=== PATIENT | male | born 1935 | race Caucasian/White ===

== ENCOUNTER → 2017-09-03 | Outpatient (CLI) | payer MEDICARE, OTHER ==
[~2017-09-03] MED LIST: BUMEX0.5 MG PO; HUMULIN 70-30 V10 ML SQ; HYDROCODONE-AP1 EACH PO; KEFLEX500 MG PO; LEVOTHYROXINE PO; QUINAGLUTE324 MG GT; Z.0.ALDACTONE50 MG PO; Z.0.ASPIRIN325 MG PO; Z.0.COUMADIN5 MG PO; Z.0.CRESTOR5 MG PO; Z.0.DIOVAN80 MG PO; Z.0.LYRICA75 MG PO; [UNRECOGNIZED DRUG - OTHER] SQ
--- NOTE | 2017-09-03 14:03 | Diagnostic Imaging Report ---
PROCEDURE: Frontal and lateral views of the chest. COMPARISON: None. INDICATIONS: SINUS CONGESTION SINCE APR 2017 FINDINGS: Lines/tubes: None. Lungs: The lungs are well inflated and clear. There is no evidence of pneumonia or pulmonary edema. Pleura: There is no pleural effusion or pneumothorax. Heart and mediastinum: The cardiac silhouette is mildly enlarged. Bones: No acute bony abnormality. IMPRESSION: 1. No acute cardiopulmonary disease. Jean-Claude Espinal M.D. Dictated by: Jean-Claude Espinal M.D. on 09/03/2017 at 14:05 Electronically approved by: Jean-Claude Espinal M.D. on 09/03/2017 at 14:05
--- NOTE | 2017-09-03 14:10 | Diagnostic Imaging Report ---
PROCEDURE:X-RAY PARANASAL SINUSES, LIMITED COMPARISON:None. INDICATIONS:RIGHT SINUS CONGESTION SINCE APR 2017 FINDINGS: There is near diffuse opacification of the right maxillary sinus. There is a small air-fluid level in the left maxillary sinus. The remainder paranasal sinuses are clear. No expansile or destructive osseous lesions are seen. No evidence of fracture. CONCLUSION: Diffuse increased opacification of the right maxillary sinus and a small air-fluid level in the left maxillary sinus suggesting sinusitis right greater than left. CT paranasal sinuses/maxillofacial imaging the helpful for characterization Jean-Claude Espinal M.D. Dictated by: Jean-Claude Espinal M.D. on 09/03/2017 at 14:12 Electronically approved by: Jean-Claude Espinal M.D. on 09/03/2017 at 14:12
== END ==
LOC: RAD 13:05
PROVIDERS: ATTEND Family Medicine
DX: J01.10 Acute frontal sinusitis, unspecified (principal); I10 Essential (primary) hypertension
CPT/HCPCS: 70210; 71046

== ENCOUNTER 2018-04-01 09:47 | Outpatient (RCR) | payer MEDICARE, OTHER ==
[2018-04-01] MEDS ORDERED: MUPIROCIN 2% OINT 22 GM TUBE ONE (18:22)
[2018-04-01] MEDS ORDERED: MINERAL OIL/PETROLAT/GLYCERI 6OZ BTL ONE (18:22)
== END 2018-04-05 ==
LOC: WCC 09:47
PROVIDERS: ATTEND Plastic Surgery
DX: E11.65 Type 2 diabetes mellitus with hyperglycemia (principal); I87.331 Chronic venous hypertension (idiopathic) with ulcer and inflammation of right lower extremity; I87.339 Chronic venous hypertension (idiopathic) with ulcer and inflammation of unspecified lower extremity; L97.819 Non-pressure chronic ulcer of other part of right lower leg with unspecified severity; L97.809 Non-pressure chronic ulcer of other part of unspecified lower leg with unspecified severity; R60.0 Localized edema; I89.0 Lymphedema, not elsewhere classified; M10.9 Gout, unspecified; I10 Essential (primary) hypertension; E03.9 Hypothyroidism, unspecified; E66.01 Morbid (severe) obesity due to excess calories; G47.39 Other sleep apnea; H40.9 Unspecified glaucoma; I25.119 Atherosclerotic heart disease of native coronary artery with unspecified angina pectoris

== ENCOUNTER → 2018-05-15 | Outpatient (CLI) | payer MEDICARE, OTHER | LOC: RAD 08:13 | PROVIDERS: ATTEND Plastic Surgery | DX: I87.331 Chronic venous hypertension (idiopathic) with ulcer and inflammation of right lower extremity (principal); L97.819 Non-pressure chronic ulcer of other part of right lower leg with unspecified severity | CPT/HCPCS: 93970 ==

== ENCOUNTER 2018-05-20 09:36 | Outpatient (RCR) | payer MEDICARE, OTHER ==
[~2018-05-20 09:36] MED LIST changes: +MINERAL OIL/PETROLAT/GLYCERI 6OZ BTL ONE
[2018-05-20] MEDS ORDERED: MINERAL OIL/PETROLAT/GLYCERI 6OZ BTL ONE (18:57)
== END 2018-06-06 ==
LOC: WCC 09:36
PROVIDERS: ATTEND Plastic Surgery
DX: E11.65 Type 2 diabetes mellitus with hyperglycemia (principal); I87.331 Chronic venous hypertension (idiopathic) with ulcer and inflammation of right lower extremity; I87.339 Chronic venous hypertension (idiopathic) with ulcer and inflammation of unspecified lower extremity; L97.819 Non-pressure chronic ulcer of other part of right lower leg with unspecified severity; L97.809 Non-pressure chronic ulcer of other part of unspecified lower leg with unspecified severity; I87.2 Venous insufficiency (chronic) (peripheral); Q82.0 Hereditary lymphedema; R60.0 Localized edema; M10.9 Gout, unspecified; I10 Essential (primary) hypertension; L81.9 Disorder of pigmentation, unspecified; E03.9 Hypothyroidism, unspecified; I25.119 Atherosclerotic heart disease of native coronary artery with unspecified angina pectoris; E66.01 Morbid (severe) obesity due to excess calories; G47.39 Other sleep apnea; H40.9 Unspecified glaucoma

== ENCOUNTER → 2019-07-17 | Outpatient (CLI) | payer MEDICARE, OTHER ==
[~2019-07-17] MED LIST changes: -MINERAL OIL/PETROLAT/GLYCERI 6OZ BTL ONE
--- NOTE | 2019-07-17 11:21 | Diagnostic Imaging Report ---
EXAM: Renal Ultrasound INDICATION: ^[id number] ^[id number] ^CHRONIC KIDNEY DISEASE STAGE III COMPARISON: None TECHNIQUE: Transverse and longitudinal images of the kidneys and bladder were obtained. FINDINGS: Right Kidney: Length: 14.4 cm Appearance: Normal echogenicity. Collecting system: No hydronephrosis Stones: None Cyst/Mass: None Left Kidney: Length: 10.6 cm Appearance: Normal echogenicity. Collecting system: No hydronephrosis Stones: None Cyst/Mass: 3.8 x 4.0 x 4.3 cm lower pole anechoic simple cyst. Bladder: Decompressed IMPRESSION: No hydronephrosis or renal calculi. Left lower pole 4.3 cm subtle cyst. Decompressed bladder limits evaluation. Signed by: Can Hay MD on 07/17/2019 11:18 AM
== END ==
LOC: US 09:52
PROVIDERS: ATTEND Internal Medicine Nephrology
DX: N18.3 Chronic kidney disease, stage 3 (moderate) (principal); I12.9 Hypertensive chronic kidney disease with stage 1 through stage 4 chronic kidney disease, or unspecified chronic kidney disease
CPT/HCPCS: 76770

== ENCOUNTER 2020-05-24 12:24 | Inpatient (IN) | payer MEDICARE, OTHER ==
[~2020-05-24] VITALS: Ht 177.8 cm; Wt 167.8 kg
[2020-05-24 13:21] LABS: BASOPHILS % 0.3 % (0.0-1.0); EOSINOPHILS % 0.1 % (0.0-6.0); HEMATOCRIT 32.5 % (38.2-49.6); LYMPHOCYTES # (AUTO) 4.9 (1.0-3.2); LYMPHOCYTES % 34.6 % (18.0-39.1); MEAN CORPUSCULAR HEMOGLOBIN 28.8 pg (28-32); MEAN CORPUSCULAR HGB CONC 30.8 g/dL (31-35); MEAN CORPUSCULAR VOLUME 93.7 fL (81-99); MONOCYTES # (AUTO) 0.9 (0.2-0.8); MONOCYTES % 6.1 % (4.4-11.3); NEUTROPHILS # (AUTO) 8.4 (2.1-6.9); NEUTROPHILS % 58.5 % (38.7-80.0); PLATELET COUNT 284 x10e3/uL (140-360); RED BLOOD COUNT 3.47 x10e6/uL (4.3-5.7)
[2020-05-24 13:31] LABS: INR 3.68; PROTHROMBIN TIME 39.8 seconds (11.9-14.5)
[2020-05-24 13:32] LABS: PARTIAL THROMBOPLASTIN TIME 31.4 seconds (23.8-35.5)
[2020-05-24 13:39] LABS: ALBUMIN/GLOBULIN RATIO 0.9 (0.8-2.0); ANION GAP 11.9 mmol/L (8-16); CALCIUM 8.4 mg/dL (8.4-10.2); CREATININE, SERUM 2.27 mg/dL (0.72-1.25); MAGNESIUM 1.9 MG/DL (1.3-2.1)
[2020-05-24 13:45] LABS: CREATINE KINASE MB 2.6 ng/mL (0-5.0)
[2020-05-24 13:49] LABS: POTASSIUM 6.9 mmol/L (3.5-5.1)
[2020-05-24 13:54] LABS: ERYTHROCYTE SEDIMENTATION RATE 37 mm/hr (0-13)
[2020-05-24 14:52] LABS: CLARITY,URINE CLEAR (CLEAR); COLOR,URINE YELLOW (YELLOW); LEUKOCYTE ESTERASE ,URINE NEGATIVE (NEGATIVE)
[2020-05-24 14:53] LABS: NITRITE,URINE NEGATIVE (NEGATIVE); PROTEIN,URINE DIPSTICK NEGATIVE (NEGATIVE)
[2020-05-24 14:54] LABS: KETONES,URINE NEGATIVE (NEGATIVE); URINE UROBILINOGEN 0.2 mg/dL (0.2 - 1)
[2020-05-24 15:03] LABS: EPITHELIAL CELLS,URINE RARE /LPF; MUCUS,URINE FEW (RARE); RBC,URINE 0-5 /HPF (0-5); WBC,URINE (MAN) 0-5 /HPF (0-5)
[2020-05-24] MEDS ORDERED: DEXTROSE 50% SYRINGE 50 ML IV STA (15:40)
[2020-05-24] MEDS ORDERED: SODIUM BICARBONATE 8.4% INJ 50 ML SYR IV STA (15:40)
[2020-05-24] MEDS ORDERED: SODIUM CHLORIDE 0.9% 500ML 500 ML IV ONE ×2 (15:45→17:15)
[2020-05-24] MEDS ORDERED: INSULIN REGULAR, HUMAN 100 UNIT/1 ML 3ML VIAL IV ONE (15:45)
[2020-05-24] MEDS ORDERED: CALCIUM GLUCONATE 10% INJ 4.65 MEQ in SODIUM CHLORIDE 0.9% 50ML 50 ML IV ONE (16:15)
[2020-05-24] MEDS ORDERED: ATORVASTATIN CA20 MG PO (16:23)
[2020-05-24] MEDS ORDERED: WARFARIN SODIU7.5 MG PO (16:23)
[2020-05-24] MEDS ORDERED: LEVOTHYROXINE50 MCG PO (16:23)
[2020-05-24] MEDS ORDERED: LOPERAMIDE2 MG PO (16:23)
[2020-05-24] MEDS ORDERED: QUINIDINE SULF300 MG PO (16:23)
[2020-05-24] MEDS ORDERED: ACETAMINOPHEN325 M1 PO (16:23)
[2020-05-24] MEDS ORDERED: ALLOPURINOL300 MG PO (16:23)
[2020-05-24] MEDS ORDERED: XALATAN2.5 ML OU (16:24)
[2020-05-24] MEDS ORDERED: ONDANSETRON HCL INJ 2MG/ML 2ML 2 MG/ML VIAL IV PRN (17:15)
[2020-05-24] MEDS ORDERED: SOD POLYSTYRENE SULFONATE SUSP 15 GM/60 ML BTL PO STA (17:28)
[2020-05-24] MEDS ORDERED: PHYTONADIONE 10 MG/ML AMP SQ STA (17:28)
[2020-05-24] MEDS ORDERED: LACTULOSE SYRUP 20 GM/30 ML UDC PO STA (17:28)
[2020-05-24] MEDS: DEXTROSE 50% SYRINGE 50 ML IV PRN ×2 (17:38→18:32)
[2020-05-24 17:42] LABS: THYROID STIMULATING HORMONE 1.935 uIU/mL (0.350-4.940)
[2020-05-24] MEDS: SODIUM BICARBONATE 8.4% SYRING 150 ML in DEXTROSE 5% 1,000 ML IV SCH (18:17)
[2020-05-24] MEDS ORDERED: SODIUM BICARBONATE 8.4% SYRING 50 ML ONE (18:28)
[2020-05-24] MEDS: INSULIN LISPRO 100 UNIT/1 ML 3ML VIAL SQ SCH (20:43)
[2020-05-24] MEDS: SODIUM CHLORIDE 0.9% 1000ML 1,000 ML IV SCH (21:58)
[2020-05-24 22:13] LABS: CREATINE KINASE MB 2.5 ng/mL (0-5.0)
[2020-05-25] MEDS: SODIUM CHLORIDE 0.9% 1000ML 1,000 ML IV SCH ×2 (01:58→02:05)
[2020-05-25] MEDS: SODIUM BICARBONATE 8.4% SYRING 150 ML in DEXTROSE 5% 1,000 ML IV SCH ×2 (02:05→19:10)
[2020-05-25] MEDS ORDERED: SODIUM BICARBONATE 8.4% SYRING 100 ML ONE (02:12)
[2020-05-25 05:34] LABS: BASOPHILS # (AUTO) 0.1 (0.0-0.1); BASOPHILS % 0.4 % (0.0-1.0); EOSINOPHILS # (AUTO) 0.1 (0.0-0.4); EOSINOPHILS % 0.6 % (0.0-6.0); HEMATOCRIT 31.2 % (38.2-49.6); HEMOGLOBIN 9.6 g/dL (14.0-18.0); LYMPHOCYTES # (AUTO) 5.1 (1.0-3.2); MEAN CORPUSCULAR HEMOGLOBIN 28.9 pg (28-32); MEAN CORPUSCULAR HGB CONC 30.8 g/dL (31-35); NEUTROPHILS # (AUTO) 9.6 (2.1-6.9); NEUTROPHILS % 60.5 % (38.7-80.0); PLATELET COUNT 255 x10e3/uL (140-360); RED BLOOD COUNT 3.32 x10e6/uL (4.3-5.7); RED CELL DISTRIBUTION WIDTH 19.3 % (11.7-14.4)
[2020-05-25 05:44] LABS: INR 3.82
[2020-05-25 05:54] LABS: CREATINE KINASE MB 3.1 ng/mL (0-5.0)
[2020-05-25 06:16] LABS: ALBUMIN 2.8 g/dL (3.5-5.0); ALBUMIN/GLOBULIN RATIO 0.9 (0.8-2.0); ANION GAP 10.5 mmol/L (8-16); CALCIUM 7.8 mg/dL (8.4-10.2); CREATININE, SERUM 2.03 mg/dL (0.72-1.25); POTASSIUM 5.5 mmol/L (3.5-5.1)
[2020-05-25] MEDS ORDERED: PHYTONADIONE 1 MG/0.5 ML AMP IM ONE (07:00)
[2020-05-25] MEDS ORDERED: SOD POLYSTYRENE SULFONATE SUSP 15 GM/60 ML BTL PO ONE (07:15)
[2020-05-25] MEDS ORDERED: LACTULOSE SYRUP 20 GM/30 ML UDC PO ONE (07:15)
[2020-05-25] MEDS: LEVOFLOXACIN 250MG/D5W 50ML 50 ML IV SCH (08:02)
[2020-05-25] MEDS ORDERED: PHYTONADIONE 10 MG/ML AMP IM ONE (08:15)
[2020-05-25] MEDS: INSULIN LISPRO 100 UNIT/1 ML 3ML VIAL SQ SCH ×4 (11:30→21:00)
[2020-05-25 14:25] LABS: CREATINE KINASE MB 2.6 ng/mL (0-5.0)
[2020-05-25 15:55] LABS: ALBUMIN 2.8 g/dL (3.5-5.0); ALBUMIN/GLOBULIN RATIO 0.9 (0.8-2.0); ANION GAP 14.3 mmol/L (8-16); CALCIUM 7.8 mg/dL (8.4-10.2); CREATININE, SERUM 2.01 mg/dL (0.72-1.25)
[2020-05-25 15:57] LABS: POTASSIUM 5.3 mmol/L (3.5-5.1)
[2020-05-25] MEDS ORDERED: LACTULOSE SYRUP 20 GM/30 ML UDC PO NR (16:15)
[2020-05-25] MEDS ORDERED: SOD POLYSTYRENE SULFONATE SUSP 15 GM/60 ML BTL PO NR (16:15)
[2020-05-25] MEDS ORDERED: ACETAMINOPHEN 325 MG TAB PO PRN (18:15)
[2020-05-25 21:29] VITALS: BP 117/61
[2020-05-25] MEDS: HUMULIN 70/30 VIAL SQ SCH (21:50)
[2020-05-25] MEDS: ATORVASTATIN 40 MG TAB PO SCH (21:50)
[2020-05-25 22:00] VITALS: BP 117/61
[2020-05-26] VITALS (9 sets, daily range): BP systolic 112–147; BP diastolic 52–99
[2020-05-26] MEDS: SODIUM BICARBONATE 8.4% SYRING 150 ML in DEXTROSE 5% 1,000 ML IV SCH ×2 (05:56→20:34)
[2020-05-26] MEDS: LEVOTHYROXINE SODIUM 50 MCG TAB PO SCH (06:00)
[2020-05-26 06:12] LABS: BASOPHILS # (AUTO) 0.1 (0.0-0.1); BASOPHILS % 0.4 % (0.0-1.0); EOSINOPHILS # (AUTO) 0.1 (0.0-0.4); HEMOGLOBIN 9.9 g/dL (14.0-18.0); LYMPHOCYTES # (AUTO) 4.5 (1.0-3.2); LYMPHOCYTES % 32.8 % (18.0-39.1); MEAN CORPUSCULAR HEMOGLOBIN 29.1 pg (28-32); MEAN CORPUSCULAR HGB CONC 30.9 g/dL (31-35); MEAN CORPUSCULAR VOLUME 94.1 fL (81-99); MONOCYTES # (AUTO) 1.2 (0.2-0.8); MONOCYTES % 8.5 % (4.4-11.3); NEUTROPHILS # (AUTO) 7.7 (2.1-6.9); NEUTROPHILS % 56.8 % (38.7-80.0); PLATELET COUNT 246 x10e3/uL (140-360); RED CELL DISTRIBUTION WIDTH 19.5 % (11.7-14.4)
[2020-05-26 06:25] LABS: INR 1.91; PROTHROMBIN TIME 23.4 seconds (11.9-14.5)
[2020-05-26 06:39] LABS: ALBUMIN 2.7 g/dL (3.5-5.0); ALBUMIN/GLOBULIN RATIO 0.9 (0.8-2.0); ANION GAP 13.3 mmol/L (8-16); CREATININE, SERUM 1.8 mg/dL (0.72-1.25); MAGNESIUM 1.7 MG/DL (1.3-2.1); POTASSIUM 5.3 mmol/L (3.5-5.1)
[2020-05-26] MEDS: HUMULIN 70/30 VIAL SQ SCH ×4 (07:30→20:32)
[2020-05-26] MEDS: INSULIN LISPRO 100 UNIT/1 ML 3ML VIAL SQ SCH ×4 (07:30→20:32)
[2020-05-26] MEDS: LEVOFLOXACIN 250MG/D5W 50ML 50 ML IV SCH (08:40)
[2020-05-26] MEDS ORDERED: ALLOPURINOL 300 MG TAB PO SCH (09:00)
[2020-05-26] MEDS ORDERED: VALSARTAN 80 MG TAB PO SCH (09:00)
[2020-05-26] MEDS ORDERED: LACTULOSE SYRUP 20 GM/30 ML UDC PO ONE (14:00)
[2020-05-26] MEDS ORDERED: SOD POLYSTYRENE SULFONATE SUSP 15 GM/60 ML BTL PO ONE (14:00)
[2020-05-26] MEDS: ATORVASTATIN 40 MG TAB PO SCH (20:37)
[2020-05-26] MEDS ORDERED: SODIUM BICARBONATE 650 MG TAB PO SCH (21:00)
[2020-05-27] MEDS: SODIUM BICARBONATE 8.4% SYRING 150 ML in DEXTROSE 5% 1,000 ML IV SCH (04:45)
[2020-05-27 04:55] VITALS: BP 131/88
[2020-05-27] MEDS: LEVOTHYROXINE SODIUM 50 MCG TAB PO SCH (05:59)
[2020-05-27 06:08] LABS: BASOPHILS % 0.3 % (0.0-1.0); EOSINOPHILS # (AUTO) 0.1 (0.0-0.4); EOSINOPHILS % 0.9 % (0.0-6.0); HEMATOCRIT 28.6 % (38.2-49.6); HEMOGLOBIN 8.8 g/dL (14.0-18.0); LYMPHOCYTES # (AUTO) 4.5 (1.0-3.2); LYMPHOCYTES % 31.8 % (18.0-39.1); MEAN CORPUSCULAR HGB CONC 30.8 g/dL (31-35); MEAN CORPUSCULAR VOLUME 94.4 fL (81-99); MONOCYTES # (AUTO) 1.1 (0.2-0.8); MONOCYTES % 7.7 % (4.4-11.3); NEUTROPHILS # (AUTO) 8.3 (2.1-6.9); PLATELET COUNT 197 x10e3/uL (140-360); RED BLOOD COUNT 3.03 x10e6/uL (4.3-5.7); RED CELL DISTRIBUTION WIDTH 19.4 % (11.7-14.4)
[2020-05-27 06:45] LABS: ALBUMIN 2.4 g/dL (3.5-5.0); ALBUMIN/GLOBULIN RATIO 0.9 (0.8-2.0); ANION GAP 13.1 mmol/L (8-16); CALCIUM 7.7 mg/dL (8.4-10.2); CREATININE, SERUM 1.55 mg/dL (0.72-1.25); POTASSIUM 4.1 mmol/L (3.5-5.1)
[2020-05-27 07:42] VITALS: BP 131/88
[2020-05-27 08:06] VITALS: BP 101/70
== END 2020-05-27 10:09 | disposition home or self-care (01) | DRG 683 ==
LOC: ER 12:31 → ERHOLD 17:26 → MED/SURG3 05-25 16:48
PROVIDERS: ADMIT Family Medicine; ATTEND Family Medicine
DX: N17.9 Acute kidney failure, unspecified (principal); N39.0 Urinary tract infection, site not specified; L03.116 Cellulitis of left lower limb; L03.115 Cellulitis of right lower limb; Z68.43 Body mass index [BMI] 50.0-59.9, adult; E87.2 Acidosis; E87.5 Hyperkalemia; I25.10 Atherosclerotic heart disease of native coronary artery without angina pectoris; Z95.5 Presence of coronary angioplasty implant and graft; M21.379 Foot drop, unspecified foot; M54.16 Radiculopathy, lumbar region; E11.22 Type 2 diabetes mellitus with diabetic chronic kidney disease; N18.30 Chronic kidney disease, stage 3 unspecified; I12.9 Hypertensive chronic kidney disease with stage 1 through stage 4 chronic kidney disease, or unspecified chronic kidney disease; E66.01 Morbid (severe) obesity due to excess calories; Z20.822 Contact with and (suspected) exposure to COVID-19; I48.0 Paroxysmal atrial fibrillation; Z99.3 Dependence on wheelchair
CPT/HCPCS: 36415; 70450; 71045; 72125; 80053; 81001; 82550; 82553; 82948; 83735; 84436; 84443; 84479; 84484; 85025; 85610; 85651; 85730; 87086; 93005; 96372; 97139; 99285; J0610; J1817; J1956; J3430; J7030; J7040; J7070; J7799; U0002